=== PATIENT | male | born 1940 | race Caucasian/White ===

== ENCOUNTER 2018-04-01 16:35 | Emergency (ER) | payer OTHER ==
--- NOTE | 2018-04-01 17:01 | PDOC ---
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 Denies any recent increase in activity or recent trauma to his back. Describes the pain as achy, sharp, non-radiating, and better when laying down or resting. 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 His orthopedic surgeon is following him for this and recently tapped the joint to culture and stain the fluid. Denies any nausea, vomiting, diarrhea, constipation , headache, chest pain, or other symptoms. 04/01/18 17:08 Past History - Past Medical History Allergies/Adverse Reactions: Allergies Allergy/AdvReac Type Severity Reaction Status Date / Time No Known Allergies Allergy Verified 04/01/18 17:03 Home Medications: Ambulatory Orders Betaxolol HCl [Betoptic S] 1 drop OP HS 10/27/14 Ezetimibe [Zetia] 10 mg PO HS 10/27/14 Latanoprost 0.005% Eye Drops [Xalatan 0.005% Eye Drops -] 1 drop TP HS 10/27/14 Acetaminophen W/ Codeine #3 [Tylenol # 3 -] 1 tab PO Q6H 04/01/18 Cyclobenzaprine HCl 5 mg PO HS 04/01/18 Simvastatin [Zocor -] 40 mg PO HS 04/01/18 Warfarin Sodium [Jantoven] 5 mg PO HS 04/01/18 Hypercholesterolemia: Yes - Surgical History Orthopedic Surgery: Yes (Lt Shoulder) - Suicide/Smoking/Psychosocial Hx Smoking History: Unknown if ever smoked Have you smoked in the past 12 months: No Hx Alcohol Use: No Drug/Substance Use Hx: No Substance Use Type: None Hx Substance Use Treatment: No Review of Systems - Review of Systems Constitutional: Yes: Chills, Fever. No: Diaphoresis HEENTM: No: Eye Pain, Blurred Vision, Tearing Respiratory: No: Cough, Orthopnea, Shortness of Breath Cardiac (ROS): No: Chest Pain, Edema, Irregular Heart Rate ABD/GI: No: Diarrhea, Nausea, Vomiting : No: Burning, Dysuria, Discharge Musculoskeletal: Yes: Back Pain, Muscle Pain. No: Joint Pain Integumentary: No: Bruising, Flushing, Lesions, Lumps Neurological: No: Headache, Numbness, Paresthesia, Seizure, Tingling, Weakness Psychiatric: No: Anxiety, Depression Hematologic/Lymphatic: Yes: Blood Clots. No: Easy Bleeding, Easy Bruising *Physical Exam - Physical Exam General Appearance: Yes: Nourished, Appropriately Dressed, Apparent Distress, Mild Distress HEENT: positive: EOMI, PEACE, Normal ENT Inspection, Normal Voice Neck: positive: Trachea midline, Normal Thyroid, Supple. negative: Tender, Rigid Respiratory/Chest: positive: Lungs Clear, Normal Breath Sounds. negative: Chest Tender, Respiratory Distress Cardiovascular: positive: Regular Rhythm, Regular Rate Gastrointestinal/Abdominal: positive: Normal Bowel Sounds, Flat, Soft. negative : Tender Lymphatic: negative: Adenopathy, Tenderness Musculoskeletal: positive: Decreased Range of Motion (Decrased range of motion in his L -spine with mild left illiac/ L4 paraspinal tendereness). negative: Normal Inspection Extremity: positive: Normal Capillary Refill, Normal Inspection. negative: Normal Range of Motion (Slight left hip limited ROM), Tender Integumentary: positive: Normal Color, Dry, Warm Neurologic: positive: Fully Oriented, Alert, Normal Mood/Affect, Normal Response , Motor Strength 5/5 ED Treatment Course - LABORATORY CBC & Chemistry Diagram: 04/01/18 18:15 04/01/18 18:15 Medical Decision Making - Medical Decision Making 77 year old male, fairly active with chronic back pain and left hip prosthesis presenting with left lower back pain. Patient's labs WNL and feels much improved with good ROM after Toradol 30 IM with a lidocaine patch which greatly improved his symptoms. He was running a mild fever but denies any other symptoms. States that he feels comfortable going home taking his Tylenol with codeine at home but we gave him onset small dose of Tylenol here. 04/01/18 18:54 *DC/Admit/Observation/Transfer Diagnosis at time of Disposition: Lower back pain Qualifiers: Chronicity: acute Back pain laterality: left Sciatica presence: without sciatica Qualified Code(s): M54.5 - Low back pain - Discharge Dispostion Disposition: HOME Condition at time of disposition: Improved Decision to Admit order: No - Referrals Referrals: Dom Lugo MD [Staff Physician] - - Patient Instructions Printed Discharge Instructions: Low Back Pain Additional Instructions: Please use your flexural and your Tylenol with codeine for your pain. Please follow up with yor orthopedic surgeon next week for your fevers and hip pains. Please call him on Tuesday and let him know that you are having fevers and pain. Please come right back to the ED if you have worsening fevers, chills, or pain that isn't better with your home medications. - Post Discharge Activity
--- NOTE | 2018-04-01 17:05 | PDOC ---
Attending Attestation - Resident Resident Name: Geetha Dc - ED Attending Attestation I have performed the following: I have examined & evaluated the patient, The case was reviewed & discussed with the resident, I agree w/resident's findings & plan, Exceptions are as noted - HPI HPI: 04/01/18 18:42 Patient with a long history of recurrent low back pain and pain in the right hip subsequent to ORIF, complains of exacerbation of his left low back pain for several days. No radicular symptoms in the legs. No distal numbness tingling pain or weakness. No saddle anesthesia. No bowel or bladder retention or incontinence. There was no acute injury, but the patient reports walking [place] day [place] the city [place]. 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 He is taking 5 mg daily of Coumadin for approximately one week, when his usual doses 2.5 alternated with 5. He has no other signs of bleeding, including the gums urine or stool. 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 He's had some nonspecific elevation of inflammatory markers, and an aspiration performed on Tuesday is being processed. This should confirm or eliminate the possibility of a hip infection. He is awaiting the results, and will consult his orthopedist as soon as these are available. - Physicial Exam PE: 04/01/18 18:46 Physical exam reveals a low-grade fever but otherwise vital signs are normal There is no swelling, deformity, erythema, warmth, induration, or point tenderness of the spine or left hip. No distal sensory or motor deficits. Straight leg raising negative. Pulses full and symmetric. No posterior calf swelling or tenderness. Mild pain with internal and external hip rotation. - Medical Decision Making 04/01/18 18:47 Assessment: Exacerbation of chronic low back pain, probably due to imbalance created by increased pain in the left hip. Plan: Analgesics, repeat INR, further evaluation depending on results. After Toradol, the patient is much improved. He is less stiff, able to ambulate much better, and the pain is much improved.
[2018-04-01 17:10] VITALS: BP 119/81; PULSE 90; BMI 27.9
[2018-04-01] MEDS ORDERED: KETOROLAC TROMETHAMINE 30 MG/1 ML VIAL IM ONE (17:38)
[2018-04-01] MEDS ORDERED: LIDOCAINE 5% TOPICAL PATCH TP ONE (17:40)
[2018-04-01] MEDS ORDERED: KETOROLAC TROMETHAMINE 30 MG/1 ML VIAL ONE (17:44)
[2018-04-01] MEDS ORDERED: LIDOCAINE 5% TOPICAL PATCH ONE (17:45)
[2018-04-01 18:25] VITALS: TEMP 100.6
[2018-04-01 18:41] LABS: BASO % 0.1 % (0-2.0); EOS % 0.1 % (0-4.5); HEMATOCRIT 37.7 % (35.4-49); HEMOGLOBIN 12.2 GM/dl (11.7-16.9); LYMPH % 5.6 % (8-40); MCHC 32.3 g/dl (32.0-35.9); MEAN PLT VOLUME 7.8 fl (7.5-11.1); MONO % 7.1 % (3.8-10.2); NEUT % 87.1 % (42.8-82.8); PLATELET COUNT 396 K/MM3 (134-434); RBC 3.93 M/mm3 (4.00-5.60); RDW 11.8 % (11.9-15.9); WHITE BLOOD COUNT 13.4 K/mm3 (4.0-10.8)
[2018-04-01 18:48] LABS: INR 2.62 (0.82-1.09); PROTHROMBIN TIME (PATIENT) 28.8 SEC (10.2-13.0)
[2018-04-01] MEDS ORDERED: ACETAMINOPHEN 325 MG TABLET (FP) PO ONE (18:56)
[2018-04-01] MEDS ORDERED: ACETAMINOPHEN 325 MG TABLET (FP) ONE (19:06)
[2018-04-01 19:17] LABS: ALBUMIN 2.8 g/dl (3.5-5.0); ALK PHOS 59 U/L (32-92); ANION GAP 8 MMOL/L (8-16); BILIRUBIN,TOTAL 0.6 mg/dl (0.2-1.0); BLOOD UREA NITROGEN 20 mg/dl (7-18); CALCIUM 9.2 mg/dl (8.4-10.2); CHLORIDE 99 mmol/L (98-107); CO2 25 mmol/L (22-28); CREATININE 0.9 mg/dl (0.6-1.3); GLUCOSE,RANDOM 117 mg/dl (74-106); POTASSIUM 4.8 mmol/L (3.5-5.1); SGOT/AST 20 U/L (10-42); SGPT/ALT 23 U/L (10-40); SODIUM 132 mmol/L (136-145)
[2018-04-01] MEDS ORDERED: LIDOCAINE PATCH REMOVAL MC SCH (22:00)
== END 2018-04-01 19:29 | disposition home or self-care (01) ==
LOC: FER 16:35
PROC: 3E0233Z Introduction of Anti-inflammatory into Muscle, Percutaneous Approach (ICD-10-PCS; principal; 2018-04-01)
DX: M54.5 Low back pain (principal); G89.29 Other chronic pain; Z96.642 Presence of left artificial hip joint
CPT/HCPCS: 36415; 80053; 85025; 85610; 99282-25

== ENCOUNTER 2020-12-29 08:16 | Emergency (ER) | payer OTHER ==
[2020-12-29 08:31] VITALS: BP 136/88; PULSE 59; TEMP 98.2; BMI 25.4
== END 2020-12-29 10:53 | disposition home or self-care (01) ==
LOC: FER 08:16
DX: M25.552 Pain in left hip (principal)
CPT/HCPCS: 73523-TC-FY; 99283-25